=== PATIENT | male | born 1970 | race Caucasian/White ===

== ENCOUNTER 2024-06-19 00:48 | Day surgery (SDC) | payer OTHER, SELFPAY ==
[2024-06-11 08:34] VITALS: BMI 23.8
--- OUTSIDE RECORDS SUMMARY | 2024-06-19 00:52 | XMS_ITS | Clinical Summary ---
Author Organization [facility] Address [address], [address] [address] Phone Care Team Providers Care Preforms Laminator Name Role Phone Sloan Cosme DO Primary Care Provide r Allergies No known active allergies Medications atorvastatin (LIPITOR) 20 MG Tablet Take 20 mg by mouth daily. Active famotidine (Pepcid AC) 10 MG Tablet Take 10 mg by mouth daily. Active Multiple Vitamin (MULTIVITAMIN PO) Take 1 Tablet by mouth daily. Active Active Problems Problem Noted Date Diagnosed Date Malignant melanoma of nose 01/03/202402/15 Chronic ITP (idiopathic thrombocytopenia) 2023 Malignant melanoma of back 05/30/202302/20 Family History Medical History Relation Name Comments Anxiety disorder Mother Cancer Paternal Grandfather Hypertension Paternal Grandmother Stroke Paternal Grandmother Relation Name Status Comments Father Alive Mother Alive Paternal Grandfather Paternal Grandmother Social History Tobacco Use Types Packs/Day Years Used Date Smoking Tobacco: Never Smokeless Tobacco: Never Tobacco Cessation:Counseling Given: Not Answered Alcohol Use Standard Drinks/Week Comments Yes 0 (1 standard drink = 0.6 oz pur e alcohol) occasionally Sex and Gender Information Value Date Recorded Sex Assigned at Not on file Legal Sex Male 9:59 AM CDT Gender Identity Not on file Sexual Orientation Not on file Last Filed Vital Signs Vital Sign Reading Time Taken Comments Blood Pressure 132/81 01/03/2024 10:49 AM CDT Pulse 101 01/03/2024 10:49 AM CDT Temperature 36.5 C (97.7 F) 01/03/2024 10:49 AM CDT Respiratory Rate 18 01/03/2024 10:49 AM CDT Oxygen Saturation 100% 01/03/2024 10:49 AM CDT Inhaled Oxygen Concentration - - Weight 83.9 kg (185 lb) 01/03/2024 10:49 AM CDT Height 188 cm (6' 2 ) 01/03/2024 10:49 AM CDT Body Mass Index 23.75 01/03/2024 10:49 AM CDT Plan of Treatment Upcoming Encounters Date Type Department Care Team (Late st Contact Info) Description 12/31/2024 10:40 AM CDT Office Visit [facility] [address] [place] [address] Denita Madden Mackenzie, PAC [address] [place] [address] Discharge Disposition: Discharged to home or Selfcare Health Maintenance Due Date Last Done Comments Hepatitis C Virus (HCV) Screening 1968 TdaP Immunization 1968 SARS-COV-2 Immunization (#1) 1973 Pneumococcal Immunization Combined (1 of 2 - PCV) 1974 Hepatitis B Immunization (1 of 3 - 19+ 3-dose series) 12/11/1987 Pneumococcal Immunization (50+ years) (1 of 2 - PCV) 12/11/1987 Zoster Immunization (1 of 2) 12/11/1987 Colonoscopy 2013 Colorectal Cancer Screening 2013 Cologuard 2018 Immunochemical Fecal Occult Blood 2018 Influenza Immunization (#1) 2023 Respiratory Syncytial Virus (RSV) Immunization (Adult) (1 - 1-dose 75+ series) 12/11/2043 PSA Discussion Completed 06/21/2005, 06/03, 03/19/2000, Additional history exists Meningococcal Immunization (ACWY) Aged Out No longer eligible based on patient's age to complete this topic Rotavirus Immunization Aged Out No lo nger eligible based on patient's age to complete this topic Procedures Procedure Name Priority Date/Time Associated Diagnosis Comments PSA SCREEN 06/21/2005 12:00 AM CDT from Last 3 Months or Most Recently Relevant to Health Maintenance Results * PSA SCREEN (06/21/2005 12:00 AM CDT) PSA SCREEN, TOTAL 0.51 [facility] 06/21/2005 us Provider Scan CHEMISTRY ORDERABLES Final Resul t [facility] from Last 3 Months or Most Recently Relevant to Health Maintenance Insurance [facility] Care Teams Preforms Laminator Relationship Specialty Start Date End Date Sloan Cosme DO [address] [place] [address] PCP - General Family Medicine 10/17/23
[2024-06-19 11:55] VITALS: BP 136/78; PULSE 86; RESP 16; TEMP 36.3; O2SAT 100
[2024-06-19] MEDS: LACTATED RINGERS 1,000 ML 150 ML IV CONT (12:04)
--- NOTE | 2024-06-19 12:13 | WPDANESEPPF ---
Anes - Initial Pre Proc Eval Procedure: Operation Date: 06/19/24 13:00 Proposed Procedures p Screening Colonoscopy - John Mitchell MD Date/Time: 06/19/24 12:13 Surgeon: John Mitchell MD Pre Op Diagnosis: Screening Patient Data Age: 53 Gender: M Height: 1.88 m Weight: 82.1 kg Last Vital Signs Temp 36.3 C L 06/19/24 11:55 Pulse 86 06/19/24 11:55 Resp 16 06/19/24 11:55 BP 136/78 06/19/24 11:55 Pulse Ox 100 06/19/24 11:55 O2 Del Method Room Air 06/19/24 11:55 Allergies Allergy/AdvReac Type Severity Reaction Status Date / Time No Known Allergies Allergy Verified 06/19/24 11:54 Home Medications ?Medication ?Instructions ?Recorded ?Confirmed ?Type atorvastatin 20 mg tablet 20 mg PO DAILY 06/11/24 06/19/24 History famotidine 20 mg tablet (Acid 20 mg PO DAILY 06/11/24 06/19/24 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 [facility] Past Medical History Medical History (Updated 06/19/24 @ 12:15 by Hayes Oliva MD) Melanoma Hyperlipidemia Surgical History Surgical History (Updated 06/19/24 @ 12:15 by Hayes Oliva MD) H/O colonoscopy Hx of tonsillectomy H/O melanoma excision Social History Social History Alcohol intake: current Drinks per week: 4 Substance use: never Living arrangements: with family Spiritual care concerns: No Anes - Eval Final PreProcedure Day of Procedure 06/19/24 12:13 Patient weight: normal Heart: regular rate and rhythm Lungs: clear to auscultation Airway: Mallampati scale class II Neurological: alert and oriented Last oral intake: >/= 8 hours ASA classification: III Emergent: no Anesthetic plan: proceed Anesthesia type and monitoring: general GIVS and standard monitoring Results Review: All pre-operative results and documents have been reviewed as part of the pre-operative evaluation. Informed Consent: The patient's anesthetic plan and its attendant risks and benefits were discussed with the patient/family/POA. Questions were solicited and answers provided to the satisfaction of the patient/family/POA.
--- NOTE | 2024-06-19 12:42 | P.HP_ITS ---
H&P: HPI History of Present Illness Date/Time: 06/19/24 12:42 Chief Complaint: Screening colonoscopy Narrative: This is the patient's 2nd colonoscopy. There are no GI symptoms and there is no family history of colorectal cancer. Review of Systems Review of Systems: All systems reviewed & are unremarkable except as noted in HPI and below PMFSH Past Medical History Medical History (Updated 06/19/24 @ 12:43 by John Mitchell MD) Melanoma Hyperlipidemia Surgical History Surgical History (Updated 06/19/24 @ 12:15 by Hayes Oliva MD) H/O colonoscopy Hx of tonsillectomy H/O melanoma excision Social History Social History Alcohol intake: current Drinks per week: 4 Substance use: never Living arrangements: with family Spiritual care concerns: No Meds Home Medications and Allergies Home Medications ?Medication ?Instructions ?Recorded ?Confirmed ?Type atorvastatin 20 mg tablet 20 mg PO DAILY 06/11/24 06/19/24 History famotidine 20 mg tablet (Acid 20 mg PO DAILY 06/11/24 06/19/24 History 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)) Allergies Allergy/AdvReac Type Severity Reaction Status Date / Time No Known Allergies Allergy Verified 06/19/24 11:54 Vital Signs Vital Signs - 24 hr 06/19/24 11:55 Temperature 97.4 F L Pulse Rate 86 Respiratory Rate 16 Blood Pressure 136/78 Pulse Oximetry 100 Oxygen Delivery Room Air Exam Const: General: cooperative and healthy appearing Resp: Effort & Inspection: normal respiratory effort and able to speak in complete sentences Auscultation: clear to auscultation bilaterally Cardio: Rate: regular rate Rhythm: regular rhythm GI: Inspection: normal to inspection GI Palp: No No hepatosplenomegaly present Auscultation: normal bowel sounds Rectal Exam: deferred Skin: General skin exam: normal color Psych: Appearance: grossly normal Mental Status: mental status grossly normal Assessment and Plan Assessment and plan (1) Encounter for screening colonoscopy: Code(s): Z12.11 - Encounter for screening for malignant neoplasm of colon Status: Acute Assessment and Plan: The patient is deemed a good candidate for the procedure. Consent signed. Will proceed.
[2024-06-19] MEDS: SIMETHICONE ORAL SUSPENSION 20 MG/0.3 ML 30 ML BOTTLE 0.6 ML IRRIGATION (13:00)
[2024-06-19 13:08] VITALS: BP 104/69; PULSE 80; RESP 16; O2SAT 100
[2024-06-19 13:18] VITALS: BP 109/75; PULSE 74; RESP 16; O2SAT 100
[2024-06-19 13:28] VITALS: BP 112/77; PULSE 74; RESP 16; O2SAT 100
== END 2024-06-19 13:36 | disposition home or self-care (01) ==
PROVIDERS: PCP Family Medicine; Referring Provider Family Medicine; Visit Provider Internal Medicine Gastroenterology
PROC: 0DJD8ZZ Inspection of Lower Intestinal Tract, Via Natural or Artificial Opening Endoscopic (ICD-10-PCS; CPT 45378; principal; 2024-06-19 13:00)
DX: Z12.11 Encounter for screening for malignant neoplasm of colon (principal); D12.3 Benign neoplasm of transverse colon; K64.8 Other hemorrhoids
CPT/HCPCS: 45385; 88305; J2003; J2704; J7120